=== PATIENT | male | born 1965 | race Two or more races ===

== ENCOUNTER 2019-10-15 10:26 | Emergency (ER) | payer MEDICAID, OTHER ==
[~2019-10-15] VITALS: Ht 170.2 cm; Wt 145.1 kg
[2019-10-15 14:54] VITALS: BP 126/70
[2019-10-15] MEDS ORDERED: METHOCARBAMOL 500 MG TAB PO ONE (15:00)
== END 2019-10-15 15:21 | disposition home or self-care (01) ==
LOC: ER 10:31
DX: R07.89 Other chest pain (principal); E11.9 Type 2 diabetes mellitus without complications; I10 Essential (primary) hypertension

== ENCOUNTER → 2019-11-11 | Emergency (ER) | payer MEDICAID ==
[~2019-11-11] VITALS: Ht 170.2 cm; Wt 154.2 kg
[~2019-11-11] MED LIST: fentaNYL CITRATE 100 MCG/2 ML VL IV ONE
[2019-11-11 05:59] LABS: Basophils # (auto) 0.1 10 ^3/uL (0-0.2); Eosinophils # (auto) 0.3 10 ^3/uL (0-0.8); Hemoglobin 10.6 g/dL (13.5-17.5); Lymphocytes # (auto) 2.3 10 ^3/uL (0.4-5.4); Lymphocytes % (auto) 27.5 % (10.0-50.0); Mean Corpuscular Hemoglobin 28.7 pg (28.0-32.0); Mean Corpuscular Volume 89.6 fL (80.0-100.0); Monocytes # (auto) 0.8 10 ^3/uL (0-1.3); Monocytes % (auto) 9.7 % (0.0-12.0); Neutrophils # (auto) 4.9 10 ^3/uL (1.6-8.6); Neutrophils % (auto) 57.8 % (37.0-80.0); Nucleated Red Blood Cells % 0.1 %; Platelet Count (auto) 256 10^3/uL (140-450); Red Blood Cells 3.68 10^6/uL (4.5-5.90); Red Cell Distribution Width 19.2 % (11.8-14.3); White Blood Cell 8.4 10^3/uL (4.4-10.8)
[2019-11-11] MEDS: KETOROLAC TROMETH 15 mg/ml 1ML VL IV ONE ×2 (06:01→06:40)
[2019-11-11 06:02] LABS: Urine Bacteria FEW /hpf (None Seen); Urine Blood Negative /uL (Negative); Urine Specific Gravity 1.013 (1.001-1.035); Urine WBC 1 /hpf (0 - 3)
[2019-11-11 06:12] LABS: Potassium 3.9 mmol/L (3.5-5.1)
[2019-11-11 06:25] LABS: Albumin 3.3 g/dL (3.4-5.0); BUN/Creatinine Ratio 9.3; Bilirubin, Total 0.5 mg/dL (0.2-1.0); Calcium 9.2 mg/dL (8.5-10.1); Magnesium 2.2 mg/dL (1.6-2.6)
[2019-11-11 08:21] VITALS: BP 121/75
== END | disposition home or self-care (01) ==
LOC: EDUNIT# 04:46 → ER 04:51 → EDBD 04:51
DX: K40.20 Bilateral inguinal hernia, without obstruction or gangrene, not specified as recurrent (principal); K42.9 Umbilical hernia without obstruction or gangrene; E11.9 Type 2 diabetes mellitus without complications; E44.1 Mild protein-calorie malnutrition; I10 Essential (primary) hypertension; E07.9 Disorder of thyroid, unspecified
CPT/HCPCS: 36415; 74176; 80053; 81001; 82150; 83690; 83735; 85025; 96374; 96375; 99284; J3010

== ENCOUNTER 2020-11-15 10:19 | Emergency (ER) | payer MEDICAID ==
[~2020-11-15] VITALS: Ht 170.2 cm; Wt 147.4 kg
[2020-11-15 10:55] LABS: Basophils # (auto) 0.1 10 ^3/uL (0-0.2); Eosinophils # (auto) 0.1 10 ^3/uL (0-0.8); Eosinophils % (auto) 1.4 % (0.0-7.0); Hematocrit 42.5 % (41.0-53.0); Hemoglobin 14.3 g/dL (13.5-17.5); Lymphocytes # (auto) 1.3 10 ^3/uL (0.4-5.4); Lymphocytes % (auto) 15.6 % (10.0-50.0); Mean Corpuscular Hemoglobin 28.9 pg (28.0-32.0); Mean Corpuscular Hgb Conc. 33.7 g/dL (32.0-36.0); Mean Corpuscular Volume 85.6 fL (80.0-100.0); Monocytes # (auto) 0.8 10 ^3/uL (0-1.3); Neutrophils # (auto) 6.2 10 ^3/uL (1.6-8.6); Nucleated Red Blood Cells % 0.1 %; Platelet Count (auto) 198 10^3/uL (140-450); Red Blood Cells 4.97 10^6/uL (4.5-5.90); White Blood Cell 8.5 10^3/uL (4.4-10.8)
[2020-11-15 11:04] LABS: Albumin 3.1 g/dL (3.4-5.0); Anion Gap 10 (5-15); Blood Urea Nitrogen 9 mg/dL (7-18); Carbon Dioxide 22 mmol/L (21-32); Chloride 100 mmol/L (98-107); Glucose 157 mg/dL (74-106); Magnesium 2.5 mg/dL (1.6-2.6); Sodium 132 mmol/L (136-145)
[2020-11-15 11:11] LABS: Alanine Aminotransferase 36 U/L (16-61); Alkaline Phosphatase 119 U/L (45-117); Aspartate Aminotransferase 50 U/L (15-37); Bilirubin, Total 1.1 mg/dL (0.2-1.0); GFR African American 112 mL/min; GFR Non-African American 93 mL/min; Total Protein 8.1 g/dL (6.4-8.2)
[2020-11-15] MEDS ORDERED: IOHEXOL 350 MG/ML 100ML IJ ONE (12:49)
[2020-11-15 14:00] VITALS: BP 137/71
== END 2020-11-15 15:27 | disposition home or self-care (01) ==
LOC: ER 10:19 → EDBD 10:19 → ER 15:27
DX: J44.9 Chronic obstructive pulmonary disease, unspecified (principal); E11.9 Type 2 diabetes mellitus without complications; I10 Essential (primary) hypertension; Z20.822 Contact with and (suspected) exposure to COVID-19
CPT/HCPCS: 36415; 71045; 71275; 80053; 83735; 84484; 85025; 85379; 87426; 93005; 99285; Q9967